=== PATIENT | female | born 1995 | race Two or more races ===

== ENCOUNTER 2022-08-17 18:19 | Inpatient (IN) | payer OTHER ==
[~2022-08-17] VITALS: Ht 157.5 cm; Wt 59.0 kg
[2022-08-18] MEDS ORDERED: FAMOTIDINE40 MG (16:11)
== END 2022-08-20 13:37 | disposition home or self-care (01) | DRG 343 ==
LOC: ER 18:19 → O/R 08-18 12:05 → SEC-K 08-18 12:05 → OB/GYN 08-18 12:05 → O/R 08-18 12:56 → OB/GYN 08-18 16:21
PROVIDERS: Surgery; ADMIT Specialist; ATTEND Specialist
PROC: 0DTJ4ZZ Resection of Appendix, Percutaneous Endoscopic Approach (ICD-10-PCS; principal; 2022-08-18 14:30)
DX: K35.890 Other acute appendicitis without perforation or gangrene (principal); Z20.822 Contact with and (suspected) exposure to COVID-19